=== PATIENT | female | born 1985 | race Native Hawaiian/Other Pacific Islander ===

== ENCOUNTER 2018-05-12 19:36 | Observation (INO) | payer OTHER ==
--- NOTE | 2018-05-12 20:12 | ED PDOC ---
HPI: Female Pain Time Seen by Provider: 05/12/18 20:05 Chief Complaint (Nursing): Female Genitourinary Chief Complaint (Provider): Pelvic Pain History Per: Patient History/Exam Limitations: no limitations Onset/Duration Of Symptoms: Days (two to three) Current Symptoms Are (Timing): Better Severity: Mild Quality Of Discomfort: "Pain" (Pt presents to the ED complaining of suprapubic pain for several days and being informed today by an Urgent Care that she was and shouuld have an US to r/o an ectopic . Pt denies bleeding and unusual discharge and states that her last menstrual period was 2/5; Pt denies fever and urinary symptoms, nausea vomiting and diarhhea) Past Medical History Reviewed: Historical Data, Nursing Documentation, Vital Signs Vital Signs: Last Vital Signs Temp 98.1 F 05/12/18 19:43 Pulse 112 H 05/12/18 19:43 Resp 18 05/12/18 19:43 BP 139/85 05/12/18 19:43 Pulse Ox 100 05/12/18 19:43 - Medical History PMH: Hypothyroidism Denies: Chronic Kidney Disease - Family History Family History: States: Unknown Family Hx - Allergies Allergies/Adverse Reactions: Allergies Allergy/AdvReac Type Severity Reaction Status Date / Time No Known Allergies Allergy Verified 05/12/18 19:47 Review of Systems ROS Statement: Except As Marked, All Systems Reviewed And Found Negative Genitourinary Female: Positive for: Pelvic Pain Physical Exam - Reviewed Nursing Documentation Reviewed: Yes Vital Signs Reviewed: Yes - Physical Exam Appears: Positive for: Well, Non-toxic, No Acute Distress. Negative for: Uncomfortable Head Exam: Positive for: ATRAUMATIC, NORMAL INSPECTION Skin: Positive for: Normal Color, Warm, Dry. Negative for: Diaphoresis, Pallor, Rash Eye Exam: Positive for: Normal appearance, PERRL. Negative for: Nystagmus, Periorbital swelling, Periorbital tenderness Neck: Positive for: Normal, Painless ROM, Supple. Negative for: Decreased ROM Cardiovascular/Chest: Positive for: Regular Rate, Rhythm Respiratory: Positive for: Normal Breath Sounds Pulses-Carotid (L): 2+ Pulses-Carotid (R): 2+ Pulses-Radial (L): 2+ Pulses-Radial (R): 2+ Gastrointestinal/Abdominal: Positive for: Normal Exam, Bowel Sounds (active in all four quadrants), Soft. Negative for: Tenderness, Distended, Rebound Back: Positive for: Normal Inspection. Negative for: L CVA Tenderness, R CVA Tenderness Neurologic/Psych: Positive for: Alert, Oriented - Laboratory Results Result Diagrams: 05/12/18 21:11 05/12/18 21:11 - ECG O2 Sat by Pulse Oximetry: 100 Medical Decision Making Medical Decision Making: I: r/o ectopic P: establish bHCG - 200+ UA -no clinically significant results CMP - no clinically significant results CBC - WBC 12.7; otherwise, no clinically significant results. Specifically, Hg is >12 US Transvag - see findings below 2242 --US transvaginal FINDINGS: ENDOMETRIUM: Normal thickness is within normal limits measuring 7.9 mm in AP dimension. UTERUS/CERVIX: The uterus is retroverted in positionand normal in size measuring approximately 5.9 x 3.6 x 4.6 cm in longitudinal, AP and transverse dimensions respectively. No uterine fibroid or other mass evident. RIGHT OVARY: Normal Doppler flow. In the right adnexal region there is a hypoechoic area surrounded by a hypervascular echogenic ring. The possibility of ectopic gestation must be considered. Several tiny follicles are present in the right ovary. LEFT OVARY: Normal Doppler flow. No abnormal mass. FREE FLUID: There is free fluid identified in the right adnexal region and left lower quadrant. the possibility of intraperitoneal hemorrhage from rupturing ectopic gestation could be considered. IMPRESSION: 1. Findings suspicious for right adnexal ectopic gestation as described above. 2. Free fluid is seen in the right adnexal region and left lower quadrant. 3. Several tiny right ovarian follicles are present. 4. Retroverted position of the uterus; a normal variant finding. 2299- Consulted with OB - Dr Michael Brown who advised that she would be at bedside momentarily; pt is stable and was advised of US findings Dr Brown advised to admit to OBS and she will make a determination after further diagnostic testing Ordered: NPO Diet Type and Screen IV Fluids Disposition - Clinical Impression Clinical Impression: Genitourinary Pain - Patient ED Disposition Is Patient to be Admitted: Yes Discussed With : Ashley Brown Doctor Will See Patient In The: Hospital Counseled Patient/Family Regarding: Studies Performed, Diagnosis, Need For Followup - Disposition Disposition Time: 00:16 Condition: STABLE - Pt Status Changed To: Hospital Disposition Of: Observation
[2018-05-12 21:24] LABS: BASO # 0.1 K/uL (0.0-0.2); BASO % 0.4 % (0.0-2.0); EOS # 0.1 K/uL (0.0-0.7); EOS % 0.7 % (0.0-4.0); HEMOGLOBIN 12.7 g/dL (12.0-16.0); LYMPH # 1.6 K/uL (1.0-4.3); LYMPH % 13.1 % (20.0-40.0); MEAN CELL VOLUME 88.6 fl (81.0-99.0); MEAN CORPUSCULAR HEMOGLOBIN 29.6 pg (27.0-31.0); MEAN CORPUSCULAR HGB CONC 33.4 g/dL (33.0-37.0); MEAN PLATELET VOLUME 8.6 fl (7.2-11.7); MONO # 0.8 K/uL (0.0-0.8); MONO % 6.1 % (0.0-10.0); NEUT # 9.8 K/uL (1.8-7.0); NEUT % 79.7 % (50.0-75.0); NRBC % 0.2 % (0.0-0.0); RBC 4.3 Mil/uL (3.80-5.20); WHITE BLOOD COUNT 12.3 K/uL (4.8-10.8)
[2018-05-12 21:26] LABS: SQUAMOUS EPITHIAL 6 /hpf (0-5); URINE BACTERIA OCC (<OCC); URINE BILIRUBIN NEGATIVE (NEGATIVE); URINE BLOOD LARGE (NEGATIVE); URINE CLARITY SLIGHTY-CLOUDY (Clear); URINE COLOR STRAW (YELLOW); URINE GLUCOSE (UA) NEG (NEGATIVE); URINE LEUKOCYTE ESTERASE NEG Leu/uL (Negative); URINE PROTEIN NEGATIVE (NEGATIVE); URINE UROBILINOGEN 0.2-1.0 mg/dL (0.2-1.0)
[2018-05-12 21:29] LABS: ALBUMIN 4.4 g/dL (3.5-5.0); BLOOD UREA NITROGEN 9 mg/dl (7-17); CALCIUM 9.5 mg/dL (8.4-10.2); GFR NON-AFRICAN AMERICAN > 60
[2018-05-12 21:30] LABS: ALB/GLOB RATIO 1.1 (1.0-2.1); ALT/SGPT 21 U/L (9-52); AST/SGOT 23 U/L (14-36)
[2018-05-12] MEDS ORDERED: Sodium Chloride 0.9% 1,000 ML IV ONE (23:55)
[2018-05-13] MEDS: Lactated Ringer's 1,000 ML IV SCH ×3 (00:30→15:23)
--- NOTE | 2018-05-13 00:57 | CP.PCM.HP ---
History of Present Illness - History of Present Illness History of Present Illness: Patient is a presenting with abdominal pain on/off for past 4 days. Patient reports this afternoon she started to have more intense pain and when she went to urgent care, she was told she was and to come to ER. BHCG = 2800, U/S shows no defined IUP, mod amount of free fluid in the abdomen and suspicious products in right adexa that could be ectopic. Patient besides abdominal discomfort which is mild, denies CP, no SOB, no N/V, ambulating well, no LOC. Patient had an IUD placed in 08/2017, and had regular monthly periods that would always last 5 days. Patient says this period this month started 04/25 and she has been bleeding almost every day. On 05/04, patient say an OBGYN in [place], who on evaluation determined that the IUD was being expelled and removed the IUD which was partially coming out of the cervix. Patient says today the bleeding is minimal Present on Admission - Present on Admission Any Indicators Present on Admission: No Review of Systems - Breasts Breasts: As Per HPI - Cardiovascular Cardiovascular: As Per HPI - Respiratory Respiratory: As Per HPI - Gastrointestinal Gastrointestinal: As Per HPI - Genitourinary Genitourinary: As Per HPI - Reproductive: Female Reproductive:Female: As Per HPI Past Patient History - Infectious Disease Hx of Infectious Diseases: None - Past Social History Smoking Status: Never Smoked - CARDIAC Hx Cardiac Disorders: No - PULMONARY Hx Respiratory Disorders: No - NEUROLOGICAL Hx Neurological Disorder: No - HEENT Hx HEENT Problems: No - RENAL Hx Chronic Kidney Disease: No - ENDOCRINE/METABOLIC Hx Hypothyroidism: Yes - HEMATOLOGICAL/ONCOLOGICAL Hx Blood Disorders: No - INTEGUMENTARY Hx Dermatological Problems: No - MUSCULOSKELETAL/RHEUMATOLOGICAL Hx Musculoskeletal Disorders: No - GASTROINTESTINAL Hx Gastrointestinal Disorders: No - GENITOURINARY/GYNECOLOGICAL Hx Genitourinary Disorders: No - PSYCHIATRIC Hx Psychophysiologic Disorder: No Hx Substance Use: No - SURGICAL HISTORY Hx Surgeries: No - ANESTHESIA Hx Anesthesia: No Meds Allergies/Adverse Reactions: Allergies Allergy/AdvReac Type Severity Reaction Status Date / Time No Known Allergies Allergy Verified 05/12/18 19:47 Physical Exam - Constitutional Appears: Well, Non-toxic, No Acute Distress - Head Exam Head Exam: ATRAUMATIC - Neck Exam Neck exam: Positive for: Normal Inspection - Respiratory Exam Respiratory Exam: NORMAL BREATHING PATTERN - Cardiovascular Exam Cardiovascular Exam: REGULAR RHYTHM - GI/Abdominal Exam GI & Abdominal Exam: Normal Bowel Sounds, Soft Additional comments: mild tenderness to deep palpation on right side, no rebound, no gaurding, +BS - Exam Exam: NORMAL INSPECTION - Extremities Exam Extremities exam: Positive for: normal inspection Results - Vital Signs Recent Vital Signs: Last Vital Signs Temp 98.1 F 05/12/18 19:43 Pulse 112 H 05/12/18 19:43 Resp 18 05/12/18 19:43 BP 139/85 05/12/18 19:43 Pulse Ox 100 05/13/18 00:17 - Labs Result Diagrams: 05/12/18 21:11 05/12/18 21:11 Labs: Laboratory Results - last 24 hr 05/12/18 05/12/18 05/12/18 21:11 21:11 21:11 WBC 12.3 H RBC 4.30 Hgb 12.7 Hct 38.1 MCV 88.6 MCH 29.6 MCHC 33.4 RDW 13.0 Plt Count 388 MPV 8.6 Neut % (Auto) 79.7 H Lymph % (Auto) 13.1 L [place] % (Auto) 6.1 Eos % (Auto) 0.7 Baso % (Auto) 0.4 Neut # (Auto) 9.8 H Lymph # (Auto) 1.6 [place] # (Auto) 0.8 Eos # (Auto) 0.1 Baso # (Auto) 0.1 Sodium 139 Potassium 4.4 Chloride 102 Carbon Dioxide 23 Anion Gap 18 BUN 9 Creatinine 0.6 L Est GFR ( Amer) > 60 Est GFR (Non-Af Amer) > 60 Random Glucose 101 Calcium 9.5 Total Bilirubin 0.3 AST 23 ALT 21 Alkaline Phosphatase 108 Total Protein 8.5 H Albumin 4.4 Globulin 4.1 H Albumin/Globulin Ratio 1.1 Beta HCG, Quant 2868.00 Urine Color Straw Urine Clarity Slighty-cloudy Urine pH 7.0 Ur Specific [place] < 1.005 Urine Protein Negative Urine Glucose (UA) Neg Urine Ketones Negative Urine Blood Large Urine Nitrate Negative Urine Bilirubin Negative Urine Urobilinogen 0.2-1.0 Ur Leukocyte Esterase Neg Urine RBC (Auto) 2 Urine Microscopic WBC 1 Ur Squamous Epith Cells 6 H Urine Bacteria Occ H Assessment & Plan - Assessment and Plan (Free Text) Plan: A/P 32 yo with of unknown origin, possible ectopic 1. patient is quite comfortable, mild abdominal discomfort which she feels has improved, Hbg=12.7. U/S findings are suspicious for an ectopic with free fluid. Patient also reports a story of having vaginal bleeding for over 2 wks - findings could indicate possible a ruptured hemorrhagic cyst and a miscarriage. 2. Patient to stay NPO and be observed overnight. IVF, CBC/type and screen/BHCG for AM. If patient is clinically worsened or labs suggestive of worsening picture, will advise to proceed with Laparoscopy for removal of and hemoperitoneum 3. Discussed everything with patient and , all questions answered - Date & Time Date: 05/13/18 Time: 00:56
--- NOTE | 2018-05-13 08:26 | US ---
Date of service: 05/12/2018 HISTORY: r/o ectopic preg Beta HCG results: 2686.0 units. LMP 04/25/2018. COMPARISON: None available. TECHNIQUE: Transvaginal only. Real -time technique with 2D, duplex and color Doppler FINDINGS: UTERUS: Measures 3.6 x 4.6 x 5.9 cm. Normal in size and appearance. No fibroid or other mass lesion seen. ENDOMETRIUM: Measures 7.9 mm in diameter. No ultrasound findings to suggest gestational sac, fluid, debris, mass or polyp or other pathologic process within the endometrium. CERVIX: No cervical abnormality identified. Closed cervix 3.0 cm. RIGHT OVARY: Measures 1.1 x 2.9 x 2.2 cm. 4 mm cystic structure surrounded by a rim tissue overall diameter 1.3 x 1.9 x 1.6. Circumferential hypervascularity documented. The findings are consistent with right adnexal ectopic gestation. LEFT OVARY: Measures 1.6 x 1.6 x 2.3 cm. No solid mass. Normal flow. FREE FLUID: Complex fluid tracks along the pericolic gutter into the right lower quadrant. OTHER FINDINGS: None. IMPRESSION: Highly suspicious findings for right adnexal ectopic gestation as described above. Communication of results: I reviewed the study and discussed the findings with the attending physician at 08:13February 2018
[2018-05-13 08:29] LABS: BASO % 0.5 % (0.0-2.0); EOS # 0.1 K/uL (0.0-0.7); EOS % 0.6 % (0.0-4.0); HEMOGLOBIN 12.3 g/dL (12.0-16.0); LYMPH # 1.6 K/uL (1.0-4.3); LYMPH % 16.8 % (20.0-40.0); MEAN CELL VOLUME 89.4 fl (81.0-99.0); MEAN CORPUSCULAR HEMOGLOBIN 29.8 pg (27.0-31.0); MEAN CORPUSCULAR HGB CONC 33.3 g/dL (33.0-37.0); MEAN PLATELET VOLUME 8.4 fl (7.2-11.7); MONO # 0.5 K/uL (0.0-0.8); MONO % 5.9 % (0.0-10.0); NEUT # 7.1 K/uL (1.8-7.0); NEUT % 76.2 % (50.0-75.0); RBC 4.12 Mil/uL (3.80-5.20); RED CELL DISTRIBUTION WIDTH 13.1 % (11.5-14.5); WHITE BLOOD COUNT 9.3 K/uL (4.8-10.8)
[2018-05-13 08:49] VITALS: BP 104/70; PULSE 109; RESP 20; TEMP 97.5; O2SAT 100
--- NOTE | 2018-05-13 10:02 | CP.PCM.PN ---
Subjective - Date & Time of Evaluation Date of Evaluation: 05/13/18 Time of Evaluation: 09:57 - Subjective Subjective: Pt reports that her abdominal pain is much better from yesterday. Pt reports that she isn't hungry but she is thirsty. Pt reports that she only sees spotting w/ wiping after using the bathroom. Objective - Vital Signs/Intake and Output Vital Signs (last 24 hours): Temp Pulse Resp BP Pulse Ox 97.5 F L 109 H 20 104/70 100 05/13/18 08:48 05/13/18 08:48 05/13/18 08:48 05/13/18 08:48 05/13/18 08:48 - Medications Medications: Current Medications Lactated Ringer's (Lactated Ringer's) 1,000 mls @ 150 mls/hr IV .[id number] MAYRA Last Admin: 05/13/18 06:30 Dose: Not Given Methotrexate 80 mg/ CHEMO IV 3.2 mls @ 0 mls/hr IM ONCE ONE Stop: 05/13/18 09:47 - Labs Labs: 05/13/18 08:23 05/12/18 21:11 - Constitutional Appears: Well, No Acute Distress - GI/Abdominal Exam GI & Abdominal Exam: Soft Additional comments: Nontender Assessment and Plan - Assessment and Plan (Free Text) Assessment: 32 yo w/ non-viable w/ HCG going down o/n (2868->2838), w/ suspicious findings for ectopic on right ovary (4mm sac w/ impressive hypervascularity). Pt appears well clinically w/ benign abdomen on exam. Hgb 12.7 -> 12.3 this am. Pt is hemodynamically stable. Will proceed w/ giving methotrexate 80 mg based on height 5"1 and weight 59 kg. Pt to follow up on Days 4 and 7 at [facility] for repeat HCGs. Pt given strict precautions to return to ED if severe abdominal pain, heavy bleeding, CP, SOB, rapid heart beat, dizziness. Pt told to avoid sunlight, NSAIDs, folic acid, vitamins, and leafy green vegetables.
[2018-05-13] MEDS ORDERED: METHOTREXATE IM ONE (12:00)
[2018-05-13] MEDS ORDERED: CHEMO IM ONE (12:00)
== END 2018-05-13 15:34 | disposition home or self-care (01) ==
LOC: H.ER 19:36 → H.ERHOLD 23:51 → INTOOBSV 23:51 → H.MEDSURG1 05-13 02:06
PROVIDERS: ADMIT Obstetrics & Gynecology; ATTEND Obstetrics & Gynecology
DX: O00.90 Unspecified ectopic pregnancy without intrauterine pregnancy (principal); R10.2 Pelvic and perineal pain; E03.9 Hypothyroidism, unspecified
CPT/HCPCS: 76830; 80053; 81003; 81025; 82948; 84702; 85025; 86850; 86900; 99285; G0378; J7120; J9250